=== PATIENT | male | born 1955 | race Caucasian/White ===

== ENCOUNTER 2018-12-07 22:25 | Inpatient (IN) ==
[2018-12-07] MEDS ORDERED: SODIUM CHLORIDE 0.9% 1000ML 1,000 ML IV ONE (23:48)
[2018-12-08 00:01] LABS: Basophils # (auto) 0.04 K/uL (0-0.2); Basophils % (auto) 0.5 %; Eosinophils # (auto) 0.28 K/uL (0-0.5); Eosinophils % (auto) 3.3 %; Hematocrit (blood only) 38.6 % (42-52); Hemoglobin 13.2 g/dL (14.0-18.0); Immature Granulocytes # (auto) 0.02 K/uL (0.00-0.02); Immature Granulocytes % (auto) 0.2 %; Lymphocytes # (auto) 2.01 K/uL (1.2-3.4); Lymphocytes % (auto) 23.6 %; Mean Corpuscular Hgb Conc 34.2 g/dL (32-36); Mean Corpuscular Volume 92.3 fL (80-100); Mean Platelet Volume 10.4 fL (7.4-10.4); Monocytes # (auto) 0.74 K/uL (0.11-0.59); Monocytes % (auto) 8.7 %; Neutrophils # (auto) 5.42 K/uL (1.4-6.5); Neutrophils % (auto) 63.7 %; Platelet Count 363 K/uL (130-400); RDW Coefficient of Variation 12.7 % (11.5-14.5); RDW Standard Deviation 43.1 fL (36.4-46.3); Red Blood Count 4.18 M/uL (4.7-6.1); White Blood Count 8.51 K/uL (4.8-10.8)
[2018-12-08 00:08] LABS: Partial Thromboplastin Time 27.1 Seconds (21.0-31.0); Prothrombin Time 10.6 Seconds (9.0-12.0)
[2018-12-08 00:10] LABS: Alanine Aminotransferase 18 U/L (12-78); Albumin Level 3.1 gm/dl (3.4-5.0); Aspartate Aminotransferase 16 U/L (15-37); BUN Creatinine Ratio 21.3 (10-20); Bilirubin Direct < 0.1 mg/dl (0-0.2); Blood Urea Nitrogen 18 mg/dl (7-18); C Reactive Protein 2.41 mg/dl (0-0.29); Calcium 9.4 mg/dl (8.5-10.1); Carbon Dioxide 28 mmol/L (21-32); Chloride 105 mmol/L (98-107); Creatinine Clr Calc Pharmacy 76.1 ml/min; Est GFR (African American) 108.5; Est GFR (Non-African American) 93.6; Glucose 101 mg/dl (70-99); Magnesium 2.5 mg/dl (1.8-2.4); Potassium 4.2 mmol/L (3.5-5.1); Sodium 138 mmol/L (136-145)
[2018-12-08] MEDS ORDERED: OPTIRAY 320 125ml IV PRN (00:12)
[2018-12-08 00:13] LABS: Alkaline Phosphatase 96 U/L (45-117); Bilirubin,Total 0.1 mg/dl (0.2-1); Total Protein 7.7 gm/dl (6.4-8.2); Troponin I < 0.015 ng/ml (0-0.045)
[2018-12-08] MEDS ORDERED: PIPERACILLIN/TAZOBACTAM 4.5 GM/120 ML BAG IV ONE (01:01)
[2018-12-08] MEDS ORDERED: VANCOMYCIN CONSULT ACTIVE PRN ×2 (01:01→03:56)
[2018-12-08] MEDS ORDERED: PIPERACILL/TAZOBAC CONSULT ACTIVE PRN ×2 (01:01→03:56)
[2018-12-08] MEDS ORDERED: VANCOMYCIN HCL 1,250 MG in SODIUM CHLORIDE 0.9% 500 ML IV ONE (01:01)
--- NOTE | 2018-12-08 03:17 | History & Physical Report ---
Date of Service December 08, 2018 Assessment & Plan (1) Elevated erythrocyte sedimentation rate: 63 yo M with history of mastocytosis s/p Bone marrow transplant, AML no currently being treated, Afib, presenting with recent history of chest pain within last 48 hrs in addition to reported recent diagnosis of pericarditis, new diagnosis of afib admitted with elevated inflammatory markers, bilateral opacities on CT chest -Admit to Telemetry - Elevated ESR etiology unclear. Pneumonia considered although patient arrived afebrile without leukocytosis, and a 100 saturation on room air. Given recent symptoms of chest pain, recent diagnosis of possible pericarditis, also considering myocarditis etiology. Additionally patient has known previous history of significant fungal pneumonia - previously treated with colchicine in [place] for presumed pericarditis, but stopped due to side effects. patient has NSAID anaphylactic allergy listed in chart as well - Echo ordered , Cardiology consulted, Infectious disease consulted - IV Vanco /Zosyn initiated, continue on admission (2) Opacity of lung on imaging study: Tx as above Pulm consulted F/u inhouse radiology report of CT (3) Pericarditis: diagnosed during recent travel to [facility] s/p colchicine treatment, stopped early due to GI side effects not currently complaining of active chest pain despite NSAID allergy listed on chart, he tolerated toradol in ED 2 days prior Consider if needed Trop neg on arrival, F/u CKmb no PE on CT (4) AML (acute myeloblastic leukemia): no currently undergoing treatment (5) A-fib: rate controlled (6) DVT prophylaxis: Heparin History of Present Illness Chief Complaint: Chest discomfort, abnormal labs Primary Care Provider: Jame Aguilar 63 yo M with history of mastocytosis s/p Bone marrow transplant, AML no currently being treated, Afib, presenting with recent history of chest pain within last 48 hrs in addition to reported recent diagnosis of pericarditis, new diagnosis of afib. Patient recently traveled to [facility] recently and returned home 11/23 . In [place] he developed chest pain and went to the local hospital on 11/10 , 11/11 , admitted 11/13. He was subsequently diagnosed with atrial fibrillation during one encounter and pericarditis on a subsequent encounter. He was placed on Beta-ileana( Metoprolol) 10-14 days, Colchicine that he took for 14 days and then stopped it himself due to diarrhea. Patient was seen in [facility] emergency dept 2 days ago chest pain with radiation to right shoulder, and sent home. He saw pcp Dr. Aguilar day before arrival, who told him that his ESR was elevated at 75. PCP had recommended admission for Echo , Chest CT. He continues to report some chest pain with inspiration. He denies palpitaiton, presyncope, syncope. He reports nausea, but denies ongoing diarrhea In the ED, he was found to be afebrile, 98-100% saturation, VSS, ESR >90, CRP 2.41, no leukocytosis. CTA chest per [facility] showed bilateral lung opacities, chronic scarring , bronchiectasis, Allergies Allergy/AdvReac Type Severity Reaction Status Date / Time cyclobenzaprine Allergy Severe ?MUSCLE Verified 12/07/18 23:02 RELAXANT-ANAPHYLAXIS methocarbamol Allergy Severe ?MUSCLE Verified 12/07/18 23:02 RELAXANT- ANAPHYLAXIS NSAIDS (Non-Steroidal Allergy Severe ANAPHYLAXIS Verified 12/07/18 23:02 Anti-Inflamma cefepime AdvReac Intermediate Rash Unverified 12/07/18 23:02 MUSCLE RELAXANTS Allergy Severe ANAPHYLAXIS Uncoded 12/07/18 23:02 Home Medications Home Medications Medication Instructions Recorded Confirmed Type albuterol sulfate [ProAir HFA] 1 - 2 puff INHALATION DAILY PRN 12/05/18 12/07/18 History epinephrine 0.3 mg IM UD 12/05/18 12/07/18 History ofloxacin 1 drp OPR Q6H 12/05/18 12/07/18 History Past Med/Surg History Medical History Chest pain (Acute) Mastocytosis AML (acute myeloblastic leukemia) A-fib Pericarditis Surgical History Bone marrow transplant status Family History Other No pertinent family history Social History Preferred Language: Tongan Communication Ability: Effective Beliefs That Will Affect Care: Worship Worship Beliefs: [employer] Current Living Situation: Spouse Other Information That Helps Us Care for You: No Feels Safe at Home: Yes Smoking Status: Never smoker Do You Dip or Chew Tobacco: No Hx Alcohol Use: Yes Hx Substance Use: No Review of Systems Review of Systems: All systems reviewed & are unremarkable except as noted in HPI & below Physical Exam Physical Exam: GENERAL APPEARANCE: alert and cooperative, and appears to be in no acute distress. HEAD: normocephalic. EYES: PERRL, EOMI. vision is grossly intact. EARS: hearing grossly intact. NOSE: No nasal discharge. NECK: Neck supple, non-tender without lymphadenopathy CARDIAC: Normal S1 and S2. No S3, S4 or murmurs. Rhythm is regular LUNGS: Clear to auscultation and percussion without rales, rhonchi, wheezing or diminished breath sounds. ABDOMEN: Positive bowel sounds. Soft, nondistended, nontender. No guarding or rebound. No masses. MUSKULOSKELETAL: Adequately aligned spine. Normal muscular development. LOWER EXTREMITY: no edema NEUROLOGICAL: CN II-XII intact grossly. Strength and sensation symmetric and intact throughout Results & Data Vital Signs (Past 12 Hours) Vital Signs Temp Pulse Pulse Resp BP BP Pulse Ox 12/08/18 02:02 72 18 103/66 98 12/08/18 01:00 62 18 108/66 100 12/07/18 23:22 58 L 18 114/66 97 12/07/18 22:45 36.9 C 65 20 115/58 L 98 Laboratory Results Laboratory Results WBC 8.51 K/uL (4.8-10.8) 12/07/18 23:17 RBC 4.18 M/uL (4.7-6.1) L 12/07/18 23:17 Hgb 13.2 g/dL (14.0-18.0) L 12/07/18 23:17 Hct 38.6 % (42-52) L 12/07/18 23:17 MCV 92.3 fL (80-100) 12/07/18 23:17 MCH 31.6 pg (25-34) 12/07/18 23:17 MCHC 34.2 g/dL (32-36) 12/07/18 23:17 RDW Std Deviation 43.1 fL (36.4-46.3) 12/07/18 23:17 RDW Coeff of Martin 12.7 % (11.5-14.5) 12/07/18 23:17 Plt Count 363 K/uL (130-400) 12/07/18 23:17 MPV 10.4 fL (7.4-10.4) 12/07/18 23:17 Immature Gran % (Auto) 0.2 % 12/07/18 23:17 Neut % (Auto) 63.7 % 12/07/18 23:17 Lymph % (Auto) 23.6 % 12/07/18 23:17 [place] % (Auto) 8.7 % 12/07/18 23:17 Eos % (Auto) 3.3 % 12/07/18 23:17 Baso % (Auto) 0.5 % 12/07/18 23:17 Immature Gran # (Auto) 0.02 K/uL (0.00-0.02) 12/07/18 23:17 Neut # (Auto) 5.42 K/uL (1.4-6.5) 12/07/18 23:17 Lymph # (Auto) 2.01 K/uL (1.2-3.4) 12/07/18 23:17 [place] # (Auto) 0.74 K/uL (0.11-0.59) H 12/07/18 23:17 Eos # (Auto) 0.28 K/uL (0-0.5) 12/07/18 23:17 Baso # (Auto) 0.04 K/uL (0-0.2) 12/07/18 23:17 ESR > 90 mm/hr (0-14) H 12/07/18 23:17 PT 10.6 Seconds (9.0-12.0) 12/07/18 23:17 INR 1.0 (0.9-1.1) 12/07/18 23:17 APTT 27.1 Seconds (21.0-31.0) 12/07/18 23:17 PTT Ratio 1.0 12/07/18 23:17 Sodium 138 mmol/L (136-145) 12/07/18 23:17 Potassium 4.2 mmol/L (3.5-5.1) 12/07/18 23:17 Chloride 105 mmol/L (98-107) 12/07/18 23:17 Carbon Dioxide 28 mmol/L (21-32) 12/07/18 23:17 Anion Gap 6.0 (3-11) 12/07/18 23:17 BUN 18 mg/dl (7-18) 12/07/18 23:17 Creatinine 0.83 mg/dl (0.6-1.4) 12/07/18 23:17 Est Cr Clr Drug Dosing 76.1 ml/min 12/07/18 23:17 Est GFR ( Amer) 108.5 12/07/18 23:17 Est GFR (Non-Af Amer) 93.6 12/07/18 23:17 BUN/Creatinine Ratio 21.3 (10-20) H 12/07/18 23:17 Glucose 101 mg/dl (70-99) H 12/07/18 23:17 Calcium 9.4 mg/dl (8.5-10.1) 12/07/18 23:17 Magnesium 2.5 mg/dl (1.8-2.4) H 12/07/18 23:17 Total Bilirubin 0.1 mg/dl (0.2-1) L 12/07/18 23:17 Direct Bilirubin < 0.1 mg/dl (0-0.2) 12/07/18 23:17 AST 16 U/L (15-37) 12/07/18 23:17 ALT 18 U/L (12-78) 12/07/18 23:17 Alkaline Phosphatase 96 U/L (45-117) 12/07/18 23:17 CK/CKMB % Calc Not Reportable 12/07/18 23:17 Troponin I < 0.015 ng/ml (0-0.045) 12/07/18 23:17 C-Reactive Protein 2.41 mg/dl (0-0.29) H 12/07/18 23:17 Total Protein 7.7 gm/dl (6.4-8.2) 12/07/18 23:17 Albumin 3.1 gm/dl (3.4-5.0) L 12/07/18 23:17 Medications Administered Ioversol (Optiray 320 125ml) 125 ml IV ONCE PRN PRN Reason: Interaction Checking Stop: 12/12/18 00:11 Last Admin: 12/08/18 00:12 Dose: 85 ml Documented by: [id number] Discontinued Medications Sodium Chloride (Nss 1000ml) 1,000 mls @ 999 mls/hr IV .Q1H1M ONE Stop: 12/08/18 00:48 Last Infusion: 12/08/18 00:54 Dose: 0 mls/hr Documented by: [id number] Admin: 12/07/18 23:53 Dose: 999 mls/hr Documented by: [id number] Piperacillin Sod/Tazobactam Sod (Zosyn) 4.5 gm in 120 mls @ 240 mls/hr IV NOW ONE Stop: 12/08/18 01:30 Last Infusion: 12/08/18 01:59 Dose: 0 mls/hr Documented by: [id number] Admin: 12/08/18 01:25 Dose: 240 mls/hr Documented by: [id number] Vancomycin HCl 1,250 mg/ (Sodium Chloride) 525 mls @ 200 mls/hr IV NOW ONE; Protocol Stop: 12/08/18 03:38 Last Admin: 12/08/18 02:00 Dose: 200 mls/hr Documented by: [id number] Code Status & VTE Plan Code Status FULL VTE Prophylaxis Plan VTE Prophylaxis will be ordered: Yes Supervising Physician Co-Signing Physician Notes Attending addendum: I have physically seen this patient, have supervised the medical residents activities, and agree with the H&P unless as otherwise noted. Assessment and Plan: Cough with elevated sedimentation rate greater than 90/ 12 pound unintentional weight loss in an already thin male/post BMT for AML, without need for immunosuppression-- Recent travel to [place], where diagnosed with pericarditis and atrial fibrillation. He was placed on large doses of colchicine, which after 2 weeks gave him intractable diarrhea and he stopped. He also reports briefly being on a medication to control heart rate. Differential includes: Pericarditis/myocarditis/endocarditis/pneumonia on top of old scarring from previous fungal infections/ pulmonary fibrosis, among others. Order complete echocardiogram. Admit to monitored bed. He was empirically given vancomycin IV and Zosyn IV by the ED. We will hold on further antibiotics until seen by consultants. Next dosing would be around 8:00 AM Consult infectious disease, pulmonology and cardiology. Remainder of orders and notations as noted.
[2018-12-08 03:55] LABS: Creatine Kinase MB < 1.0 ng/ml (0.5-3.6)
[2018-12-08] MEDS ORDERED: ACETAMINOPHEN 325 MG TAB PO PRN (03:56)
[2018-12-08] MEDS ORDERED: ALBUTEROL HFA 8 GM INHALER INH PRN (03:56)
[2018-12-08] MEDS ORDERED: VANCOMYCIN HCL 1,000 MG in SODIUM CHLORIDE 0.9% 250 ML IV SCH (03:56)
[2018-12-08] MEDS ORDERED: ONDANSETRON INJ 2 MG/ML 2 ML VIAL IV PRN (03:56)
[2018-12-08] MEDS: PIPERACILLIN/TAZOBACTAM 3.375 GM in DEXTROSE 5% 100 ML IV SCH ×3 (04:58→21:16)
--- NOTE | 2018-12-08 05:21 | Emergency Department Note ---
Entered by Cornelius Caruso acting as a scribe for Cruzito Webb MD ED Provider Note Name: Jesse Madsen Age: 63 Arrives Via: Triage Informant: Self CC: Chest pain HPI: 63 y/o male arrives for evaluation of persistent chest pain beginning four weeks ago. The patient states he was in [place] four weeks ago and was diagnosed with a-fib and pericarditis after having persistent right sided chest pain. He notes he was admitted to the hospital and had nan echocardiogram that was normal. He reports he was placed on colchicine. The patient notes he had to stop it after about 10 days because he had severe diarrhea, no appetite, and lost 12 pounds in two weeks. He states he was evaluated in the ED two days ago because his chest pain had spread to his left chest. The patient reports he had blood cultures and lab work that showed an elevated CRP. He notes he currently feels weak and has had intermittent fevers. The patient states he was supposed to have a CT completed per his PCP, but he has not had it completed yet. He reports a history of AML and a bone marrow transplant. The patient notes he is no longer on anti-rejection medication. He denies swelling in his legs, calf pain, rashes, blood in his stool, and black stool. ROS: See above HPI for pertinent positives & negatives. A total of 10 systems reviewed and were otherwise negative. Past Medical History: Pericarditis, Mastocytosis, AML, a-fib Past Surgical History: Bone marrow transplant Family History: None Social History: . Home Medications: Proair HFA Allergies Flexeril, methocarbamol, nsaids, cefepime Physical: Vitals: Pulse 62, Resp 18, BP 108/66, O2Sat 100 Exam: GENERAL: Patient is uncomfortable and dehydrated appearing and in mild distress. EYES: No scleral icterus, unremarkable pupils. ENT: Mucous membranes dry, no nasal congestion. NECK: No masses appreciated, no meningismus, trachea is midline. RESPIRATORY: No dyspnea. Clear to auscultation and equal bilaterally. No wheeze, no rhonchi. CARDIOVASCULAR: Regular rate and rhythm. No murmurs, rubs, gallops appreciated. GASTROINTESTINAL: Abdomen soft, non-tender, no peritonitis. Bowel sounds positive. No masses appreciated. BACK: No midline tenderness, no CVA tenderness EXTREMITIES: Normal motion all extremities, no cyanosis, no edema. NEUROLOGIC: Alert and oriented, no acute motor or sensory deficits, no focal weakness, cranial nerves grossly intact. SKIN: No rash, no jaundice, no diaphoresis. ED Course: Prior Medical Record, Triage/Nursing Notes, Medications, Allergies reviewed by Me Vital Signs: reviewed and remarkable for WNL Labs: Reviewed and remarkable for elevated CRP/ESR Interventions: Saline Lock, NSS bolus, Zosyn 4.5g IV, Flagyl 500mg IV Imaging: [facility] Radiologist interpretation reviewed by me: "CTA CHEST: No evidence for pulmonary embolism. The distal thoracic aorta is not well opacified. Although this limits evaluation , no evidence for dissection is seen. There are chronic lung findings with areas of scarring and bronchiectasis. Example right middle lobe and lingula. Tree-in-bud/micronodular opacities, example right middle lobe which may be infectious. More confluent bilateral lung opacities, example bilateral lower lobes. Suspect pneumonia. Radiologist: Zay Andrade M.D." EKG: Per My Interpretation: Indication: Right Chest Pain: Sinus Harpreet 57bpm qtc 397 no ectopy no ischemia. Consults: Hospitalist Reassessments/Times: 2336: The patient was evaluated in room A11B. A complete history and physical exam was performed. 0024: The patient had a round of doxy without improvement of his symptoms. 0100: The patient is agreeable to IV abx and inpaitnet treatments. He also finished a 10 day course of doxy two days ago. 0101: Paged Dr. Trinidad, [facility] Hospitalist. 0157: I discussed the patient's case with Dr. Trinidad, [facility] Hospitalist. He will evaluate the patient for further managment and care. Blood pressure: Normal. No Referral necessary Disposition: Hospitalization Differentials: Cardiac Ischemia (STEMI, NSTEMI, Unstable Angina, etc), Aortic Dissection, Arrhythmia, Pulmonary Embolism, Pneumonia, Pneumothorax, MSK, Infectious, Pericarditis/Myocarditis, Esophageal Rupture, Gastrointestinal, amongst other pathologies entertained. Medical Decision Making: Pleasant 63 yr old male with worsening right chest pain, weight loss and fatigue. Already treated for PNA finishing a few days ago and symptoms worsening since then. Also with recent Pericarditis for which he was on colchicine. He looks well and is stable. Went ahead with CT given persistent symptoms, recent travel and unremarkable recent CXR. CT with multifocal pneumonia. ESR/CRP quite elevated. While vitals look good and WBC OK, he clearly has failed outpatient therapy and I think he will likely need further work-up including possible echo. He had blood cultures done yesterday but given possibility of endocarditis we will get another round cultures prior to abx. He is not septic and LA is not necessary. He is not in afib and I do not feel that he requires emergent anticoagulation. This seems unlikely ACS given persistent symptoms with normal Trop. Impression: Multifocal pneumonia Right-sided chest pain Curzito Webb MD The scribe's documentation has been prepared under my direction and personally reviewed by me in its entirety. I confirm that the note above accurately reflects all work, treatment, procedures, and medical decision making performed by me. Impression & Plan Multifocal pneumonia, Right-sided chest pain Past Med/Surg History Medical History Mastocytosis AML (acute myeloblastic leukemia) A-fib Pericarditis Surgical History Bone marrow transplant status Family History Other No pertinent family history Social History Preferred Language: Paraguayan Beliefs That Will Affect Care: Religion Religion Beliefs: Christianity Current Living Situation: Spouse Other Information That Helps Us Care for You: No Feels Safe at Home: Yes Smoking Status: Never smoker Do You Dip or Chew Tobacco: No Hx Alcohol Use: Yes Hx Substance Use: No Results & Data Vital Signs Vital Signs - 24 hr 12/07/18 22:45 12/07/18 23:22 12/08/18 01:00 Temperature 36.9 C Temperature Source Oral Sepsis Recent Fever Within 48 Hours No Sepsis New/Unexplained Change in Mental Status No Sepsis Action Taken by Nursing No Action Required Pulse Rate 65 Pulse Rate [Finger] 58 L 62 Pulse Rhythm Regular Pulse Rhythm [Finger] Pulse Strength Normal Pulse Strength [Finger] Respiratory Rate 20 18 18 Respiratory Effort / Characteristics Non-Labored Spontaneous Respiratory Depth Normal Respiratory Pattern Regular Blood Pressure 115/58 L Blood Pressure [Left Arm] 114/66 108/66 Blood Pressure Mean 77 Blood Pressure Mean [Left Arm] 82 80 Blood Pressure Position Sitting Blood Pressure Position [Left Arm] Pulse Oximetry 98 97 100 Oxygen Delivery Method Room Air Room Air Room Air 12/08/18 02:02 12/08/18 03:56 12/08/18 04:39 Temperature 36.7 C Temperature Source Oral Sepsis Recent Fever Within 48 Hours Sepsis New/Unexplained Change in Mental Status Sepsis Action Taken by Nursing Pulse Rate Pulse Rate [Finger] 72 66 Pulse Rhythm Pulse Rhythm [Finger] Regular Pulse Strength Pulse Strength [Finger] Normal Respiratory Rate 18 18 Respiratory Effort / Characteristics Non-Labored Non-Labored Respiratory Depth Normal Normal Respiratory Pattern Regular Regular Blood Pressure Blood Pressure [Left Arm] 103/66 117/77 Blood Pressure Mean Blood Pressure Mean [Left Arm] 78 90 Blood Pressure Position Blood Pressure Position [Left Arm] Lying Pulse Oximetry 98 96 Oxygen Delivery Method Room Air Room Air Room Air Home Medications Current Medication List: was personally reviewed by me Laboratory Data Attestation: I reviewed the patient's lab results. Result diagrams: 12/07/18 23:17 12/07/18 23:17 Lab Results 12/07/18 12/07/18 12/07/18 Range/Units 23:17 23:17 23:17 WBC 8.51 (4.8-10.8) K/uL RBC 4.18 L (4.7-6.1) M/uL Hgb 13.2 L (14.0-18.0) g/dL Hct 38.6 L (42-52) % MCV 92.3 (80-100) fL MCH 31.6 (25-34) pg MCHC 34.2 (32-36) g/dL RDW Std Deviation 43.1 (36.4-46.3) fL RDW Coeff of Martin 12.7 (11.5-14.5) % Plt Count 363 (130-400) K/uL MPV 10.4 (7.4-10.4) fL Immature Gran % (Auto) 0.2 % Neut % (Auto) 63.7 % Lymph % (Auto) 23.6 % [place] % (Auto) 8.7 % Eos % (Auto) 3.3 % Baso % (Auto) 0.5 % Immature Gran # (Auto) 0.02 (0.00-0.02) K/uL Neut # (Auto) 5.42 (1.4-6.5) K/uL Lymph # (Auto) 2.01 (1.2-3.4) K/uL [place] # (Auto) 0.74 H (0.11-0.59) K/uL Eos # (Auto) 0.28 (0-0.5) K/uL Baso # (Auto) 0.04 (0-0.2) K/uL ESR > 90 H (0-14) mm/hr PT 10.6 (9.0-12.0) Seconds INR 1.0 (0.9-1.1) APTT 27.1 (21.0-31.0) Seconds PTT Ratio 1.0 Sodium (136-145) mmol/L Potassium (3.5-5.1) mmol/L Chloride (98-107) mmol/L Carbon Dioxide (21-32) mmol/L Anion Gap (3-11) BUN (7-18) mg/dl Creatinine (0.6-1.4) mg/dl Est Cr Clr Drug Dosing ml/min Est GFR ( Amer) Est GFR (Non-Af Amer) BUN/Creatinine Ratio (10-20) Glucose (70-99) mg/dl Calcium (8.5-10.1) mg/dl Magnesium (1.8-2.4) mg/dl Total Bilirubin (0.2-1) mg/dl Direct Bilirubin (0-0.2) mg/dl AST (15-37) U/L ALT (12-78) U/L Alkaline Phosphatase (45-117) U/L CK-MB (CK-2) (0.5-3.6) ng/ml CK/CKMB % Calc Troponin I (0-0.045) ng/ml C-Reactive Protein (0-0.29) mg/dl Total Protein (6.4-8.2) gm/dl Albumin (3.4-5.0) gm/dl 12/07/18 Range/Units 23:17 WBC (4.8-10.8) K/uL RBC (4.7-6.1) M/uL Hgb (14.0-18.0) g/dL Hct (42-52) % MCV (80-100) fL MCH (25-34) pg MCHC (32-36) g/dL RDW Std Deviation (36.4-46.3) fL RDW Coeff of Martin (11.5-14.5) % Plt Count (130-400) K/uL MPV (7.4-10.4) fL Immature Gran % (Auto) % Neut % (Auto) % Lymph % (Auto) % [place] % (Auto) % Eos % (Auto) % Baso % (Auto) % Immature Gran # (Auto) (0.00-0.02) K/uL Neut # (Auto) (1.4-6.5) K/uL Lymph # (Auto) (1.2-3.4) K/uL [place] # (Auto) (0.11-0.59) K/uL Eos # (Auto) (0-0.5) K/uL Baso # (Auto) (0-0.2) K/uL ESR (0-14) mm/hr PT (9.0-12.0) Seconds INR (0.9-1.1) APTT (21.0-31.0) Seconds PTT Ratio Sodium 138 (136-145) mmol/L Potassium 4.2 (3.5-5.1) mmol/L Chloride 105 (98-107) mmol/L Carbon Dioxide 28 (21-32) mmol/L Anion Gap 6.0 (3-11) BUN 18 (7-18) mg/dl Creatinine 0.83 (0.6-1.4) mg/dl Est Cr Clr Drug Dosing 76.1 ml/min Est GFR ( Amer) 108.5 Est GFR (Non-Af Amer) 93.6 BUN/Creatinine Ratio 21.3 H (10-20) Glucose 101 H (70-99) mg/dl Calcium 9.4 (8.5-10.1) mg/dl Magnesium 2.5 H (1.8-2.4) mg/dl Total Bilirubin 0.1 L (0.2-1) mg/dl Direct Bilirubin < 0.1 (0-0.2) mg/dl AST 16 (15-37) U/L ALT 18 (12-78) U/L Alkaline Phosphatase 96 (45-117) U/L CK-MB (CK-2) < 1.0 (0.5-3.6) ng/ml CK/CKMB % Calc Not Reportable Troponin I < 0.015 (0-0.045) ng/ml C-Reactive Protein 2.41 H (0-0.29) mg/dl Total Protein 7.7 (6.4-8.2) gm/dl Albumin 3.1 L (3.4-5.0) gm/dl Administered Medications Piperacillin Sod/Tazobactam (Sod 3.375 gm/ Dextrose) 115 mls @ 28.75 mls/hr IV Q8H [facility]; Protocol Stop: 12/15/18 05:59 Last Admin: 12/08/18 04:58 Dose: 28.8 mls/hr Documented by: [id number] Discontinued Medications Sodium Chloride (Nss 1000ml) 1,000 mls @ 999 mls/hr IV .Q1H1M ONE Stop: 12/08/18 00:48 Last Infusion: 12/08/18 00:54 Dose: 0 mls/hr Documented by: [id number] Admin: 12/07/18 23:53 Dose: 999 mls/hr Documented by: [id number] Piperacillin Sod/Tazobactam Sod (Zosyn) 4.5 gm in 120 mls @ 240 mls/hr IV NOW ONE Stop: 12/08/18 01:30 Last Infusion: 12/08/18 01:59 Dose: 0 mls/hr Documented by: [id number] Admin: 12/08/18 01:25 Dose: 240 mls/hr Documented by: [id number] Vancomycin HCl 1,250 mg/ (Sodium Chloride) 525 mls @ 200 mls/hr IV NOW ONE; Protocol Stop: 12/08/18 03:38 Last Infusion: 12/08/18 05:02 Dose: 0 mls/hr Documented by: [id number] Admin: 12/08/18 02:00 Dose: 200 mls/hr Documented by: [id number] Ioversol (Optiray 320 125ml) 125 ml IV ONCE PRN PRN Reason: Interaction Checking Stop: 12/12/18 00:11 Last Admin: 12/08/18 00:12 Dose: 85 ml Documented by: [id number] Ofloxacin (Ocuflox 0.3%) 1 drops OPR Q6H [facility] Stop: 12/18/18 05:59 Last Admin: 12/08/18 05:04 Dose: Not Given Documented by: [id number] Blood Pressure Blood Pressure Findings: Normal blood pressure Blood Pressure Disposition: did not require urgent referral Discharge Plan Visit Data *Final* Discharge Date/Time: 12/08/18 03:34 Chief Complaint: Chest Pain Stated Complaint: CHEST PAIN- REFERRED ED Provider: Cruzito Webb Discharge Problem: Multifocal pneumonia, Right-sided chest pain Patient Disposition: Being Evaluated by Hospitalist Discharge Instructions Interventions: ED Discharge Assessment Last Done: 12/08/18 03:34 The scribe's documentation has been prepared under my direction and personally reviewed by me in its entirety. I confirm that the note above accurately reflects all work, treatment, procedures, and medical decision making performed by me.
[2018-12-08] MEDS ORDERED: OFLOXACIN 0.3% OP SOLN 5 ML BTL OPR SCH (06:00)
--- NOTE | 2018-12-08 07:19 | CT Scan Report ---
CHEST CTA for PULMONARY ARTERIES CT DOSE: 235.54 mGy.cm HISTORY: Right-sided chest pain. PE TECHNIQUE: Multiaxial CT images of the chest were performed following the intravenous administration of contrast to evaluate the pulmonary arteries. Maximal intensity projection images were also obtaine d. A dose lowering technique was utilized adhering to the principles of ALARA. COMPARISON STUDY: Chest 12/05/2018. FINDINGS: Normal caliber thoracic aorta with no evidence for dissection. No pleural or pericardial ef fusions. Questionable linear filling defect within a left upper lobe pulmonary and image 174 favors a rtifact. No evidence for acute pulmonary embolus within the visualized pulmonary arteries. The visual ized liver, spleen, and adrenal glands are unremarkable. No mediastinal or hilar lymphadenopathy. Nor mal esophagus. No suspicious lytic or blastic osseous lesions. No pneumothorax. The central airways a re patent. Mild bronchiectasis within the lingula. A few linear scarlike densities within the left up per lobe. Small patchy groundglass densities within the bases of the bilateral lower lobes and focal irregular consolidation within the medial aspect of the right middle lobe. IMPRESSION: 1. No evidence for acute pulmonary embolus. 2. Small patchy groundglass densities within the bilateral lower lobes and focal consolidation within the medial aspect of right middle lobe. This favors a pneumonia. Follow-up chest CT in 3 months is r ecommended to ensure resolution. 3. Additional findings as described above. Electronically signed by: Jefferson Iqbal M.D. 12/08/2018 7:17 AM
[2018-12-08 07:58] LABS: Albumin Globulin Ratio 0.7 (0.9-2); Albumin Level 2.7 gm/dl (3.4-5.0); BUN Creatinine Ratio 14.4 (10-20); Bilirubin,Total 0.3 mg/dl (0.2-1); Calcium 8.9 mg/dl (8.5-10.1); Creatinine Clr Calc Pharmacy 81.7 ml/min; Est GFR (African American) 111.3; Est GFR (Non-African American) 96.1; Globulin 4.1 gm/dl (2.5-4.0); Potassium 4.1 mmol/L (3.5-5.1); Total Protein 6.8 gm/dl (6.4-8.2)
[2018-12-08] MEDS: HEPARIN SOD 5,000 UNIT/0.5 ML VIAL SQ SCH ×2 (09:05→21:09)
--- NOTE | 2018-12-08 10:36 | Consultation Report ---
DATE OF CONSULTATION: 12/08/2018 REQUESTING: Arthur Norris MD HAND LEATHER TRIMMER: Bill Munoz DO, [facility]. REASON FOR CONSULTATION: Pericarditis, elevated sed rate, possible pneumonia. Dear Dr. Norris: Thank you for requesting a cardiology consultation on Jesse with regards to his pericarditis, elevated sed rate and possible pneumonia. I was scheduled to see him in the office in the next week or so. He was in [place] about a month ago visiting his son and grandchild. He became sick there with high fevers and URI-like symptoms. He was evaluated in the Emergency Room there and ultimately ended up being admitted. He was diagnosed with pericarditis. He also had an episode of atrial fibrillation. His discharge medications suggest he was sent home on bisoprolol 1.25 mg daily and colchicine 0.5 mg b.i.d. He notes he tried to tolerate the colchicine at the b.i.d. dosing, but had significant GI distress and loose stools and he was actually losing weight and lost about 12 pounds. After returning to the [facility] and subsequently stopping his colchicine, his chest pain reoccurred with right-sided chest discomfort that radiated to his right scapula. He has been seen in the ER twice and returned to the ER last evening due to worsening discomfort that was now in the left side. He denies any further fevers, chills or sweats. He denies a cough. He denies any night sweats or shaking chills. He denies any palpitations or fluttering or feeling his heart racing. His appetite is stabilized. He denies any lower extremity edema, fluttering, skips, PND, orthopnea. He denies a productive cough. He denies any myalgias, arthralgias, or recent rash. The rest of review of systems is otherwise negative. PAST MEDICAL HISTORY: 1. 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 2. Acute myeloid leukemia, status post chemotherapy and bone marrow transplantation in 2013 at [facility]. 3. Single episode of atrial fibrillation at the time of pericarditis. 4. Recent episode of pericarditis. 5. Theoretical risk of taking NSAIDs associated with his history of mastocytosis. 6. History of fungal pneumonia at [facility] at the time of his chemotherapy for his AML. 7. Significantly elevated sed rate at 90. FAMILY HISTORY: Noncontributory. SOCIAL HISTORY: He is retired. 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 He is . He denies any tobacco and rarely drinks alcohol. MEDICATIONS: Reviewed in electronic medical record. ALLERGIES: CYCLOBENZAPRINE, METHOCARBAMOL, THEORETICAL INTOLERANCE TO NSAIDS, ALTHOUGH HE RECEIVED TORADOL IN THE EMERGENCY ROOM 2 NIGHTS AGO, CEFEPIME AND MUSCLE RELAXANTS. PHYSICAL EXAMINATION: GENERAL: He is awake, alert, oriented x3. He does not look in any acute distress. His chest pain is improving. VITAL SIGNS: His heart rate is 58, blood pressure 121/72, respirations 18, sat 98%. HEENT: 2+ carotid upstrokes, no evidence of carotid bruits. Jugular venous pressure appeared normal. Sclerae is anicteric. Hearing is normal. LUNGS: Clear to auscultation bilaterally. No rales, rhonchi or wheezing. HEART: Regular rate and rhythm. No appreciable murmurs, rubs or gallops. ABDOMEN: Soft, nontender, nondistended. Positive bowel sounds. EXTREMITIES: No clubbing, cyanosis or edema. PSYCHIATRIC: His affect appeared appropriate. EKG: Sinus bradycardia, IL depression with subtle diffuse ST elevation consistent with pericarditis. Echocardiogram: Normal biventricular size and function. No evidence of pericardial effusion, mild aortic insufficiency with a trileaflet aortic valve. CTA of the chest: No evidence of acute pulmonary embolism, patchy ground-glass densities in the bilateral lower lobes with focal consolidation in the right middle lobe, considered pneumonia. LABORATORY STUDIES: His troponin is negative. His sed rate was greater than 90. His white count is normal at 8.51, platelet count of 363. Sodium 141, potassium 4.1, BUN 11, creatinine 0.78. IMPRESSION: 1. Recurrent pericarditis after a viral illness. 2. Normal echocardiogram with normal biventricular size and function. No evidence of pericardial effusion. 3. History of fungal pneumonia, question the cause of his current abnormalities on the CT of his chest. 4. History of bone marrow transplantation for AML in 2013. 5. 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 6. Theoretical risk of NSAIDs causing anaphylaxis with his history of mastocytosis. 7. ESR of 90 --? etiology As I discussed with him, they are really only 3 treatment options for his pericarditis. At this point, I would avoid steroids as it is incredibly difficult to get patients off steroids once they are on them for pericarditis. In addition, if he does have an infection, we should avoid immunosuppression. His other options are anti-inflammatories. He notes this was a theoretical risk that he was ALLERGIC TO NSAIDs with his history of mastocytosis and he carries an EpiPen, but he has never actually had anaphylaxis. He did receive Toradol in the Emergency Room 2 nights ago and did not have any consequences of this. The other option is to consider colchicine. He was on a higher dose at 0.5 mg twice a day when he left [facility]. Hopefully, by reducing the dose, we can treat his pericarditis and avoid the GI symptoms as this seems to be the safest option currently. If he fails colchicine, then I would consider anti-inflammatories at the lowest dose possible to control his symptoms. I will add Zantac 150 mg twice a day for GI protection. Consultations are currently pending with ID and pulmonary medicine. He notes he had a previous CT of his chest at [facility]. This will be important to compare to his current CT to see how much of the abnormalities discussed or just related to chronic scarring given his previous fungal pneumonia. All this was discussed with him in detail. Thank you for allowing us to participate in his care. SEJAL
--- NOTE | 2018-12-08 11:02 | Infectious Disease Consult ---
Date of Consultation December 08, 2018 Assessment & Plan (1) Pericarditis: 63-year-old male with prior history of mastocytosis and AML status post bone marrow transplant, recently in good health, now with evidence of pericarditis and bilateral pneumonitis with symptoms persisting for more than 1 month. Long differential diagnosis including viral infections including coxsackie, echo, CMV/EBV, bacterial infections such as mycoplasma infection, Legionella, tuberculosis, Q fever. However, would have expected at least some clinical response to doxycycline if above bacterial/rickettsial infections were present. Also concerned about possibility of autoimmune/rheumatologic disease given markedly elevated sed rate. Have ordered additional serologies, antibody studies, and QuantiFERON for TB. Will discuss further work-up and management with all involved. Will follow. (2) Multifocal pneumonia: History of Present Illness Reason for Consultation: Elevated ESR, unclear etiology Attending Physician: Som Mancini History of Present Illness 63-year-old male with history of mastocytosis, AML status post bone marrow transplant, well over the last several years, who was in usual state of health until soon after arriving in [place] on vacation he became ill with upper respiratory tract infection symptoms and irregular heartbeat with chest pain. He was found to have atrial fibrillation, which spontaneously converted, and was also diagnosed as having pericarditis. He was treated with colchicine which he was intolerant of. He continues to have low-grade fevers, associated with dry cough and mild shortness of breath along with aching chest pain. He was now admitted for further management. Is found to have markedly elevated sedimentation rate. CT scan of the chest suggest bilateral pneumonitis. Patient reportedly received a course of doxycycline prior to this admission which did not impact his symptoms significantly. No other significant travel or ill contacts. No obvious recent tick bites. Allergies Allergy/AdvReac Type Severity Reaction Status Date / Time cyclobenzaprine Allergy Severe ?MUSCLE Verified 12/07/18 23:02 RELAXANT-ANAPHYLAXIS methocarbamol Allergy Severe ?MUSCLE Verified 12/07/18 23:02 RELAXANT- ANAPHYLAXIS NSAIDS (Non-Steroidal Allergy Severe ANAPHYLAXIS Verified 12/07/18 23:02 Anti-Inflamma cefepime AdvReac Intermediate Rash Unverified 12/07/18 23:02 MUSCLE RELAXANTS Allergy Severe ANAPHYLAXIS Uncoded 12/07/18 23:02 Home Medications Home Medications Medication Instructions Recorded Confirmed Type albuterol sulfate [ProAir HFA] 1 - 2 puff INHALATION DAILY PRN 12/05/18 12/07/18 History epinephrine 0.3 mg IM UD 12/05/18 12/07/18 History ofloxacin 1 drp OPR Q6H 12/05/18 12/07/18 History Patient History Medical History Chest pain (Acute) Mastocytosis AML (acute myeloblastic leukemia) A-fib Pericarditis Surgical History Bone marrow transplant status Family History Other No pertinent family history Social History Preferred Language: Georgian Communication Ability: Effective Beliefs That Will Affect Care: Anabaptist Anabaptist Beliefs: Gnosticist Current Living Situation: Spouse Other Information That Helps Us Care for You: No Feels Safe at Home: Yes Smoking Status: Never smoker Do You Dip or Chew Tobacco: No Hx Alcohol Use: Yes Hx Substance Use: No Review of Systems Review of Systems: All systems reviewed & are unremarkable except as noted in HPI & below Physical Exam Constitutional: WD/WN, vitals as above comfortable; no acute distress Eyes: PERRL, conjunctivae normal, anicteric sclerae ENMT: external ear and nose normal, oropharynx normal Neck: trachea midline, no thyromegaly neck nontender Respiratory: normal respiratory effort, lungs clear to auscultation normal percussion; does not use accessory muscles Cardiovascular: Rate/Rhythm: regular rate and regular rhythm Heart Sounds: normal S1 and normal S2; no gallop, no murmur and no cardiac rub Vessels: normal peripheral pulses; no JVD Gastrointestinal (Abdomen): normal bowel sounds, soft, nontender, no hepatosplenomegaly Musculoskeletal: no cyanosis or clubbing, extremities motor strength 5/5 Spine: thoracic spine normal to inspection and lumbar spine normal to inspection; no cervical spinal tenderness Skin: no rashes, warm and dry normal turgor; no lesions Neurologic: patellar DTR's 2+ bilat, sensation intact no focal motor deficits Psychiatric: A+Ox3, euthymic affect Orientation: cooperative Lymphatic: no cervical or axillary lymphadenopathy no inguinal lymphadenopathy Results & Data Vital Signs (Past 12 Hours) Vital Signs Temp Pulse Pulse Resp BP Pulse Ox 12/08/18 07:40 36.8 C 58 L 18 121/72 98 12/08/18 07:00 81 12/08/18 03:56 36.7 C 66 18 117/77 96 12/08/18 02:02 72 18 103/66 98 12/08/18 01:00 62 18 108/66 100 12/07/18 23:22 58 L 18 114/66 97 Laboratory Results Short CBC 12/07/18 Range/Units 23:17 WBC 8.51 (4.8-10.8) K/uL Hgb 13.2 L (14.0-18.0) g/dL Hct 38.6 L (42-52) % Plt Count 363 (130-400) K/uL BMP 12/07/18 12/08/18 23:17 06:51 Sodium 138 141 Potassium 4.2 4.1 Chloride 105 110 H Carbon Dioxide 28 26 BUN 18 11 Creatinine 0.83 0.78 Glucose 101 H 94 Calcium 9.4 8.9 Cardiac Enzymes 12/07/18 Range/Units 23:17 CK-MB (CK-2) < 1.0 (0.5-3.6) ng/ml Troponin I < 0.015 (0-0.045) ng/ml Liver Function 12/07/18 12/08/18 Range/Units 23:17 06:51 Total Bilirubin 0.1 L 0.3 (0.2-1) mg/dl Direct Bilirubin < 0.1 (0-0.2) mg/dl AST 16 11 L (15-37) U/L ALT 18 16 (12-78) U/L Alkaline Phosphatase 96 88 (45-117) U/L Albumin 3.1 L 2.7 L (3.4-5.0) gm/dl Diagnostic Findings CHEST CTA for PULMONARY ARTERIES CT DOSE: 235.54 mGy.cm HISTORY: Right-sided chest pain. PE TECHNIQUE: Multiaxial CT images of the chest were performed following the intravenous administration of contrast to evaluate the pulmonary arteries. Maximal intensity projection images were also obtained. A dose lowering technique was utilized adhering to the principles of ALARA. COMPARISON STUDY: Chest 12/05/2018. FINDINGS: Normal caliber thoracic aorta with no evidence for dissection. No pleural or pericardial effusions. Questionable linear filling defect within a left upper lobe pulmonary and image 174 favors artifact. No evidence for acute pulmonary embolus within the visualized pulmonary arteries. The visualized liver, spleen, and adrenal glands are unremarkable. No mediastinal or hilar lymphadenopathy. Normal esophagus. No suspicious lytic or blastic osseous lesions. No pneumothorax. The central airways are patent. Mild bronchiectasis within the lingula. A few linear scarlike densities within the left upper lobe. Small patchy groundglass densities within the bases of the bilateral lower lobes and focal irregular consolidation within the medial aspect of the right middle lobe. IMPRESSION: 1. No evidence for acute pulmonary embolus. 2. Small patchy groundglass densities within the bilateral lower lobes and focal consolidation within the medial aspect of right middle lobe. This favors a pneumonia. Follow-up chest CT in 3 months is recommended to ensure resolution. 3. Additional findings as described above. Electronically signed by: Jefferson Iqbal M.D. 12/08/2018 7:17 AM Dictated: 12/08/18 0708 (1) Pericarditis Chronicity: unspecified Pericarditis type: unspecified type Qualified Code(s): I31.9 - Disease of pericardium, unspecified
[2018-12-08] MEDS: COLCHICINE 0.6 MG TAB PO SCH (11:08)
--- NOTE | 2018-12-08 14:01 | Pulmonary Consultation ---
Date of Consultation December 08, 2018 Assessment & Plan (1) Opacity of lung on imaging study: bilateral infiltrates - doubt this is acute bacterial process. could be resolving pneumonia vs viral infection. no clear exposures by history L lingular bronchiectasis likely from old fungal infection mixed groundglass and semi solid infiltrate in L base an multiple small areas RLL - possible viral infection vs pneumonitis RML more solid opacity with surrounding inflammatory changes - this area needs continued followup if not found to be old finding ESR>90 These findings are all not specific could be related to atypical infectious or viral process. mycoplasma or chlamydia pneumonia could cause both pericarditis and infiltrates but would have improved with doxycycline. fungal infection is possible but not likely. could be autoimmune/inflammatory. ANKIT and ANCA pending his only respiratory symptom is cough and I would doubt bacterial pneumonia and would favor stopping antibiotics unless another extrapulmonary infection suspected He needs repeat CT in 6-12 weeks for resolution. had CT chest at [facility] from 5 years ago that may be helpful for comparison as these findings could all be old would check TSH History of Present Illness Attending Physician: Som Mancini History of Present Illness 63 y/o male with a history of AML and mastocytosis s/p bone marrow transplant >5 years ago presenting with chest pain which started a few weeks ago while he was traveling in [place]. There he was found to have pericarditis and was started on colchicine. He thinks his pain improved but he deeded to stop it because he was getting diarrhea. Over the past few days the same pain he had returned and he presented here. He denies fevers or chills. no shortness of breath +cough. no nausea/vomiting. He was found to have infiltrates on his CT scan and an elevated sed rate. recently treated with doxycycline. here was started on piperacillin-tazobactam. Allergies Allergy/AdvReac Type Severity Reaction Status Date / Time cyclobenzaprine Allergy Severe ?MUSCLE Verified 12/07/18 23:02 RELAXANT-ANAPHYLAXIS methocarbamol Allergy Severe ?MUSCLE Verified 12/07/18 23:02 RELAXANT- ANAPHYLAXIS NSAIDS (Non-Steroidal Allergy Severe ANAPHYLAXIS Verified 12/07/18 23:02 Anti-Inflamma cefepime AdvReac Intermediate Rash Unverified 12/07/18 23:02 MUSCLE RELAXANTS Allergy Severe ANAPHYLAXIS Uncoded 12/07/18 23:02 Home Medications Home Medications Medication Instructions Recorded Confirmed Type albuterol sulfate [ProAir HFA] 1 - 2 puff INHALATION DAILY PRN 12/05/18 12/07/18 History epinephrine 0.3 mg IM UD 12/05/18 12/07/18 History ofloxacin 1 drp OPR Q6H 12/05/18 12/07/18 History Patient History Medical History Chest pain (Acute) Mastocytosis AML (acute myeloblastic leukemia) A-fib Pericarditis Surgical History Bone marrow transplant status Family History Other No pertinent family history Social History Preferred Language: Belarusian Communication Ability: Effective Beliefs That Will Affect Care: Uatsdin Uatsdin Beliefs: Faith Current Living Situation: Spouse Other Information That Helps Us Care for You: No Feels Safe at Home: Yes Smoking Status: Never smoker Do You Dip or Chew Tobacco: No Hx Alcohol Use: Yes Hx Substance Use: No Review of Systems Review of Systems: Constitutional: no fevers no chills no weight loss Eyes: no blurry or double vision EENT: no sore throat, no congestion Respiratory: + cough no shortness of breath Cardiovascular: + chest pain no palpitations GI: no abdominal pain, no nausea, no vomiting, no diarrhea, no constipation Gu: no dysuria, no frequency MSK: no joint pain, + muscle aches(shoulders) Skin: no rash Neuro: no headache, no dizziness, no focal weakness Endocrine: no heat or cold intolerance heme: no easy bruising, no lymphadenopathy Psych: no depression, no anxiety Physical Exam Physical Exam: Constitutional: Comfortable NAD HEENT: normocephalic atraumatic. MMM. no cervical lymphadenopathy CV: RRR nl s1,s2 no murmurs rubs or gallops Lungs: clear to auscultation bilaterally. no accessory muscle use Abd: soft nontender nondistended. normal bowel sounds Ext: no edema. no cyanosis, no clubbing Skin: warm dry Neuro: alert and oriented. moving all extremities Psych: normal mood and affect Results & Data Vital Signs (Past 12 Hours) Vital Signs Temp Pulse Pulse Resp BP Pulse Ox 12/08/18 11:32 36.5 C 59 L 18 109/71 97 12/08/18 07:40 36.8 C 58 L 18 121/72 98 12/08/18 07:00 81 12/08/18 03:56 36.7 C 66 18 117/77 96 12/08/18 02:02 72 18 103/66 98 Laboratory Results Laboratory Results - last 24 hr 12/07/18 12/07/18 12/07/18 23:17 23:17 23:17 WBC 8.51 RBC 4.18 L Hgb 13.2 L Hct 38.6 L MCV 92.3 MCH 31.6 MCHC 34.2 RDW Std Deviation 43.1 RDW Coeff of Martin 12.7 Plt Count 363 MPV 10.4 Immature Gran % (Auto) 0.2 Neut % (Auto) 63.7 Lymph % (Auto) 23.6 [place] % (Auto) 8.7 Eos % (Auto) 3.3 Baso % (Auto) 0.5 Immature Gran # (Auto) 0.02 Neut # (Auto) 5.42 Lymph # (Auto) 2.01 [place] # (Auto) 0.74 H Eos # (Auto) 0.28 Baso # (Auto) 0.04 ESR > 90 H PT 10.6 INR 1.0 APTT 27.1 PTT Ratio 1.0 Sodium Potassium Chloride Carbon Dioxide Anion Gap BUN Creatinine Est Cr Clr Drug Dosing Est GFR ( Amer) Est GFR (Non-Af Amer) BUN/Creatinine Ratio Glucose Calcium Magnesium Total Bilirubin Direct Bilirubin AST ALT Alkaline Phosphatase CK-MB (CK-2) CK/CKMB % Calc Troponin I C-Reactive Protein Total Protein Albumin Globulin Albumin/Globulin Ratio Hepatitis C Ab Screen 12/07/18 12/08/18 12/08/18 23:17 06:51 06:51 WBC RBC Hgb Hct MCV MCH MCHC RDW Std Deviation RDW Coeff of Martin Plt Count MPV Immature Gran % (Auto) Neut % (Auto) Lymph % (Auto) [place] % (Auto) Eos % (Auto) Baso % (Auto) Immature Gran # (Auto) Neut # (Auto) Lymph # (Auto) [place] # (Auto) Eos # (Auto) Baso # (Auto) ESR PT INR APTT PTT Ratio Sodium 138 141 Potassium 4.2 4.1 Chloride 105 110 H Carbon Dioxide 28 26 Anion Gap 6.0 5.0 BUN 18 11 Creatinine 0.83 0.78 Est Cr Clr Drug Dosing 76.1 81.7 Est GFR ( Amer) 108.5 111.3 Est GFR (Non-Af Amer) 93.6 96.1 BUN/Creatinine Ratio 21.3 H 14.4 Glucose 101 H 94 Calcium 9.4 8.9 Magnesium 2.5 H Total Bilirubin 0.1 L 0.3 Direct Bilirubin < 0.1 AST 16 11 L ALT 18 16 Alkaline Phosphatase 96 88 CK-MB (CK-2) < 1.0 CK/CKMB % Calc Not Reportable Troponin I < 0.015 C-Reactive Protein 2.41 H Total Protein 7.7 6.8 Albumin 3.1 L 2.7 L Globulin 4.1 H Albumin/Globulin Ratio 0.7 L Hepatitis C Ab Screen Neg Diagnostic Findings CHEST CTA for PULMONARY ARTERIES CT DOSE: 235.54 mGy.cm HISTORY: Right-sided chest pain. PE TECHNIQUE: Multiaxial CT images of the chest were performed following the intravenous administration of contrast to evaluate the pulmonary arteries. Maximal intensity projection images were also obtained. A dose lowering technique was utilized adhering to the principles of ALARA. COMPARISON STUDY: Chest 12/05/2018. FINDINGS: Normal caliber thoracic aorta with no evidence for dissection. No pleural or pericardial effusions. Questionable linear filling defect within a left upper lobe pulmonary and image 174 favors artifact. No evidence for acute pulmonary embolus within the visualized pulmonary arteries. The visualized liver, spleen, and adrenal glands are unremarkable. No mediastinal or hilar lymphadenopathy. Normal esophagus. No suspicious lytic or blastic osseous lesions. No pneumothorax. The central airways are patent. Mild bronchiectasis within the lingula. A few linear scarlike densities within the left upper lobe. Small patchy groundglass densities within the bases of the bilateral lower lobes and focal irregular consolidation within the medial aspect of the right middle lobe. IMPRESSION: 1. No evidence for acute pulmonary embolus. 2. Small patchy groundglass densities within the bilateral lower lobes and focal consolidation within the medial aspect of right middle lobe. This favors a pneumonia. Follow-up chest CT in 3 months is recommended to ensure resolution. 3. Additional findings as described above. Electronically signed by: Jefferson Iqbal M.D. 12/08/2018 7:17 AM
[2018-12-08 14:40] LABS: Lyme Ab IgM w/WB Rflx Negative (Negative)
[2018-12-08 14:42] LABS: Lyme Ab IgG w/WB Rflx Negative (Negative)
--- NOTE | 2018-12-08 15:03 | Pharmacy Report ---
Pharmacy Abx Initial Consult - Date of Service December 08, 2018 - Pharmacy Dosing Scope Date of Consult: 12/08 Consultation requested by: Dr. Norris Pharmacy is consulted to initiate vancomycin and Zosyn IV dosing therapy, order appropriate labs and adjust drug dose/frequency. - Subjective The patient is a 63 year old M admitted on 12/08/18 03:07. - Objective Height: 5 ft 7 in Weight: 59.6 kg Vital Signs (Past 12hrs): Vital Signs Temp Pulse Pulse Resp BP Pulse Ox 12/08/18 11:32 36.5 C 59 L 18 109/71 97 12/08/18 07:40 36.8 C 58 L 18 121/72 98 12/08/18 07:00 81 12/08/18 03:56 36.7 C 66 18 117/77 96 Lab Results (24hrs): Laboratory Tests (24 Hours) 12/08/18 12/07/18 12/07/18 06:51 23:17 23:17 WBC Neut # (Auto) ESR > 90 H Creatinine 0.78 0.83 Est Cr Clr Drug Dosing 81.7 76.1 C-Reactive Protein 2.41 H 12/07/18 23:17 WBC 8.51 Neut # (Auto) 5.42 ESR Creatinine Est Cr Clr Drug Dosing C-Reactive Protein Micro Results: 12/08/18 01:16 Blood Culture - Pending Blood 12/08/18 01:16 Blood Culture - Pending Blood - Risk Factors for Resistance * Antimicrobial use within the last 90 days : doxycycline - Assessment & Plan Assessment 63 year old M admitted with pericarditis and pneumonitis, with concern for possible pneumonia. History includes fungal pneumonia and AML s/p bone marrow transplant. Plan Vancomycin IV * Estimated PK Parameters: Vd 0.7 L/kg, Jatinder 0.072 hr-1, t1/2 hr * Loading dose: 1250 mg (21.1 mg/kg) * Maintenance dose: 1000 mg IV (16.9 mg/kg) every 14 hours * Goal trough level : 15 to 20 mcg/mL * Will not order level at this point until MRSA nasal swab comes back and we can determine if necessary to continue Piperacillin/tazobactam * 4.5 g bolus administered over 30 minutes, then 3.375 g IV extended infusion every 8 hours for CrCl greater than 20 mL/min Pharmacy will continue to follow and will adjust dose/frequency as necessary. Thank you.
[2018-12-08] MEDS ORDERED: ACETAMINOPHEN 500 MG TAB PO PRN (15:07)
[2018-12-08] MEDS: VANCOMYCIN HCL 1,000 MG in SODIUM CHLORIDE 0.9% 250 ML IV SCH (15:15)
[2018-12-08] MEDS: BENZONATATE 100 MG CAPSULE PO SCH ×2 (16:12→21:09)
[2018-12-08 19:01] VITALS: TEMP 97.9
--- NOTE | 2018-12-08 21:30 | Hospitalist Progress Note ---
Date of Service December 08, 2018 Assessment & Plan (1) Opacity of lung on imaging study: question of resolving atypical pneumonia vs fungal pneumonia (unlikely) vs viral process vs inflammatory lung process vs other. appreciate pulmonary consultation. they feel we should stop abx and observe; not unreasonable. for cough - add tessalon TID scheduled. supportive care. follow cultures. Present on Admission?: Yes (2) Elevated erythrocyte sedimentation rate: in setting of recent pericarditis. appreciate cardiology consultation. hopefully sed rate is simply reflective of whatever pathogen caused the pericar ditis (best case scenario is a viral etiology). cannot rule out autoimmune disease causing elevated sed rate. (3) Pericarditis: agree w/ cardiology to retrial the colchicine albeit at lower dose. no symptoms today. echo stable and w/o effusion. ekg stable. viral etiology? appreciate ID consultation as well. 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 CBC stable. (5) A-fib: remains in NSR. low CHADS score - not on anticoagulation. PAF was in setting of pericarditis. (6) DVT prophylaxis: heparin q12h observe overnight d/c tomorrow? Subjective main complaint is dry cough. no sputum. no dyspnea. had lost 6 pounds of late due to anorexia -- but appetite improving. feels better today. can lay flat w/o chest discomforts. Review of Systems Constitutional: + fatigue and + weight loss; no fever, no chills and no anorexia Ear, Nose, Mouth, Throat: no nasal congestion Respiratory: + cough; no dyspnea, no dyspnea on exertion, no hemoptysis, no pain on inspiration and no wheezing Cardiovascular: no chest pain, no chest pain with activity, no orthopnea, no paroxysmal nocturnal dyspnea and no edema Gastrointestinal: no abdominal pain Physical Exam Constitutional: + thin; no acute distress and not ill appearing ENMT: external ear and nose normal, oropharynx normal Respiratory: normal respiratory effort, lungs clear to auscultation Cardiovascular: RRR, no murmur, no edema Heart Sounds: normal S1 and normal S2 Vessels: posterior tibial pulses present and dorsalis pedis pulses present; no JVD Gastrointestinal (Abdomen): normal bowel sounds, soft, nontender, no hepatosplenomegaly Skin: no rashes, warm and dry Psychiatric: A+Ox3, euthymic affect Results & Data Vital Signs (Past 12 Hours) Vital Signs Temp Pulse Pulse Resp BP Pulse Ox 12/08/18 19:00 36.6 C 59 L 18 95/57 L 98 12/08/18 16:00 59 L 12/08/18 15:02 36.8 C 60 16 96/62 L 96 12/08/18 11:32 36.5 C 59 L 18 109/71 97 Laboratory Results Laboratory Results - last 24 hr 12/07/18 12/07/18 12/07/18 23:17 23:17 23:17 WBC 8.51 RBC 4.18 L Hgb 13.2 L Hct 38.6 L MCV 92.3 MCH 31.6 MCHC 34.2 RDW Std Deviation 43.1 RDW Coeff of Martin 12.7 Plt Count 363 MPV 10.4 Immature Gran % (Auto) 0.2 Neut % (Auto) 63.7 Lymph % (Auto) 23.6 Meeker % (Auto) 8.7 Eos % (Auto) 3.3 Baso % (Auto) 0.5 Immature Gran # (Auto) 0.02 Neut # (Auto) 5.42 Lymph # (Auto) 2.01 Meeker # (Auto) 0.74 H Eos # (Auto) 0.28 Baso # (Auto) 0.04 ESR > 90 H PT 10.6 INR 1.0 APTT 27.1 PTT Ratio 1.0 Sodium Potassium Chloride Carbon Dioxide Anion Gap BUN Creatinine Est Cr Clr Drug Dosing Est GFR ( Amer) Est GFR (Non-Af Amer) BUN/Creatinine Ratio Glucose Calcium Magnesium Total Bilirubin Direct Bilirubin AST ALT Alkaline Phosphatase CK-MB (CK-2) CK/CKMB % Calc Troponin I C-Reactive Protein Total Protein Albumin Globulin Albumin/Globulin Ratio Nasal Screen MRSA (PCR) Lyme Disease IgG Ab Lyme Disease IgM Ab Hepatitis C Ab Screen 12/07/18 12/08/18 12/08/18 23:17 06:51 06:51 WBC RBC Hgb Hct MCV MCH MCHC RDW Std Deviation RDW Coeff of Martin Plt Count MPV Immature Gran % (Auto) Neut % (Auto) Lymph % (Auto) Meeker % (Auto) Eos % (Auto) Baso % (Auto) Immature Gran # (Auto) Neut # (Auto) Lymph # (Auto) Meeker # (Auto) Eos # (Auto) Baso # (Auto) ESR PT INR APTT PTT Ratio Sodium 138 141 Potassium 4.2 4.1 Chloride 105 110 H Carbon Dioxide 28 26 Anion Gap 6.0 5.0 BUN 18 11 Creatinine 0.83 0.78 Est Cr Clr Drug Dosing 76.1 81.7 Est GFR ( Amer) 108.5 111.3 Est GFR (Non-Af Amer) 93.6 96.1 BUN/Creatinine Ratio 21.3 H 14.4 Glucose 101 H 94 Calcium 9.4 8.9 Magnesium 2.5 H Total Bilirubin 0.1 L 0.3 Direct Bilirubin < 0.1 AST 16 11 L ALT 18 16 Alkaline Phosphatase 96 88 CK-MB (CK-2) < 1.0 CK/CKMB % Calc Not Reportable Troponin I < 0.015 C-Reactive Protein 2.41 H Total Protein 7.7 6.8 Albumin 3.1 L 2.7 L Globulin 4.1 H Albumin/Globulin Ratio 0.7 L Nasal Screen MRSA (PCR) Lyme Disease IgG Ab Lyme Disease IgM Ab Hepatitis C Ab Screen Neg 12/08/18 12/08/18 11:46 Unknown WBC RBC Hgb Hct MCV MCH MCHC RDW Std Deviation RDW Coeff of Martin Plt Count MPV Immature Gran % (Auto) Neut % (Auto) Lymph % (Auto) Meeker % (Auto) Eos % (Auto) Baso % (Auto) Immature Gran # (Auto) Neut # (Auto) Lymph # (Auto) Meeker # (Auto) Eos # (Auto) Baso # (Auto) ESR PT INR APTT PTT Ratio Sodium Potassium Chloride Carbon Dioxide Anion Gap BUN Creatinine Est Cr Clr Drug Dosing Est GFR ( Amer) Est GFR (Non-Af Amer) BUN/Creatinine Ratio Glucose Calcium Magnesium Total Bilirubin Direct Bilirubin AST ALT Alkaline Phosphatase CK-MB (CK-2) CK/CKMB % Calc Troponin I C-Reactive Protein Total Protein Albumin Globulin Albumin/Globulin Ratio Nasal Screen MRSA (PCR) Negative Lyme Disease IgG Ab Negative Lyme Disease IgM Ab Negative Hepatitis C Ab Screen (1) Pericarditis Pericarditis type: unspecified type Chronicity: acute Qualified Code(s): I30.9 - Acute pericarditis, unspecified (2) AML (acute myeloblastic leukemia) Leukemia Active/Remission status: in remission Qualified Code(s): C92.01 - Acute myeloblastic leukemia, in remission; C92.61 - Acute myeloid leukemia with [id number] in remission; 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
[2018-12-09] MEDS: VANCOMYCIN HCL 1,000 MG in SODIUM CHLORIDE 0.9% 250 ML IV SCH (04:12)
[2018-12-09] MEDS: PIPERACILLIN/TAZOBACTAM 3.375 GM in DEXTROSE 5% 100 ML IV SCH (06:08)
[2018-12-09 06:47] LABS: Basophils # (auto) 0.08 K/uL (0-0.2); Basophils % (auto) 1.6 %; Eosinophils # (auto) 0.32 K/uL (0-0.5); Eosinophils % (auto) 6.2 %; Hematocrit (blood only) 37.7 % (42-52); Immature Granulocytes # (auto) 0.01 K/uL (0.00-0.02); Immature Granulocytes % (auto) 0.2 %; Lymphocytes # (auto) 2.14 K/uL (1.2-3.4); Lymphocytes % (auto) 41.6 %; Mean Corpuscular Hgb Conc 34.5 g/dL (32-36); Mean Corpuscular Volume 92.4 fL (80-100); Mean Platelet Volume 9.8 fL (7.4-10.4); Monocytes # (auto) 0.41 K/uL (0.11-0.59); Neutrophils # (auto) 2.19 K/uL (1.4-6.5); Neutrophils % (auto) 42.4 %; Platelet Count 306 K/uL (130-400); RDW Coefficient of Variation 12.8 % (11.5-14.5); RDW Standard Deviation 43.3 fL (36.4-46.3); Red Blood Count 4.08 M/uL (4.7-6.1); White Blood Count 5.15 K/uL (4.8-10.8)
[2018-12-09 07:18] LABS: Albumin Level 2.8 gm/dl (3.4-5.0); BUN Creatinine Ratio 15.9 (10-20); Calcium 8.8 mg/dl (8.5-10.1); Creatinine Clr Calc Pharmacy 74.3 ml/min; Est GFR (African American) 109.1; Est GFR (Non-African American) 94.1; Potassium 4.1 mmol/L (3.5-5.1)
[2018-12-09 07:21] LABS: Albumin Globulin Ratio 0.7 (0.9-2); Bilirubin,Total 0.3 mg/dl (0.2-1); Total Protein 6.8 gm/dl (6.4-8.2)
[2018-12-09] MEDS: COLCHICINE 0.6 MG TAB PO SCH (08:08)
[2018-12-09] MEDS: BENZONATATE 100 MG CAPSULE PO SCH (08:08)
[2018-12-09] MEDS: HEPARIN SOD 5,000 UNIT/0.5 ML VIAL SQ SCH (08:08)
[2018-12-09 10:48] VITALS: BP 101/66; O2SAT 92
--- NOTE | 2018-12-09 12:31 | Pulmonology Progress Note ---
Date of Service December 09, 2018 Assessment & Plan (1) Opacity of lung on imaging study: bilateral infiltrates - doubt this is acute bacterial process. could be resolving pneumonia vs viral infection. no clear exposures by history L lingular bronchiectasis likely from old fungal infection mixed groundglass and semi solid infiltrate in L base an multiple small areas RLL - possible viral infection vs pneumonitis RML more solid opacity with surrounding inflammatory changes - this area needs continued followup if not found to be old finding These findings are all not specific could be related to atypical infectious or viral process. fungal infection is possible but not likely. could be autoimmune/inflammatory. ANKIT and ANCA pending his only respiratory symptom is cough and I would doubt bacterial pneumonia and would favor stopping antibiotics unless another extrapulmonary infection suspected He needs repeat CT in 6-12 weeks for resolution. had CT chest at [facility] from 5 years ago that may be helpful for comparison as these findings could all be old symptoms improving Subjective feeling better today no further pain Physical Exam Physical Exam: Constitutional: Comfortable NAD HEENT: normocephalic atraumatic. CV: RRR nl s1,s2 no murmurs rubs or gallops Lungs: clear to auscultation bilaterally. no accessory muscle use Abd: soft nontender Ext: no edema. no cyanosis, no clubbing Skin: warm dry Neuro: alert and oriented. moving all extremities Psych: normal mood and affect Results & Data Vital Signs (Past 12 Hours) Vital Signs Temp Pulse Resp BP Pulse Ox 12/09/18 10:48 36.6 C 77 16 101/66 92 12/09/18 07:19 36.6 C 56 L 16 110/70 97 12/09/18 03:32 36.6 C 54 L 16 108/68 96
--- NOTE | 2018-12-09 13:13 | Infectious Disease Progress Nt ---
Date of Service December 09, 2018 Assessment & Plan (1) Pericarditis: 63-year-old male with prior history of mastocytosis and AML status post bone marrow transplant, recently in good health, now with evidence of pericarditis and bilateral pneumonitis with symptoms persisting for more than 1 month. Long differential diagnosis including viral infections including coxsackie, echo, CMV/EBV, bacterial infections such as mycoplasma infection, Legionella, tuberculosis, Q fever. However, would have expected at least some clinical response to doxycycline if above bacterial/rickettsial infections were present. Also concerned about possibility of autoimmune/rheumatologic disease given markedly elevated sed rate. Have ordered additional serologies, antibody studies, and QuantiFERON for TB. Await the studies before making further recommendations. (2) Multifocal pneumonia: Subjective Patient seen in follow-up for pericarditis. Feeling somewhat better. No fever. Review of Systems Review of Systems: All systems reviewed & are unremarkable except as noted in HPI & below Physical Exam Constitutional: WD/WN, vitals as above comfortable; no acute distress Eyes: PERRL, conjunctivae normal, anicteric sclerae ENMT: external ear and nose normal, oropharynx normal Neck: trachea midline, no thyromegaly neck nontender Respiratory: normal respiratory effort, lungs clear to auscultation normal percussion; does not use accessory muscles Cardiovascular: Rate/Rhythm: regular rate and regular rhythm Heart Sounds: normal S1 and normal S2; no gallop, no murmur and no cardiac rub Vessels: normal peripheral pulses; no JVD Gastrointestinal (Abdomen): normal bowel sounds, soft, nontender, no hepatosplenomegaly Musculoskeletal: no cyanosis or clubbing, extremities motor strength 5/5 Spine: thoracic spine normal to inspection and lumbar spine normal to inspection; no cervical spinal tenderness Skin: no rashes, warm and dry normal turgor; no lesions Neurologic: patellar DTR's 2+ bilat, sensation intact no focal motor deficits Psychiatric: A+Ox3, euthymic affect Orientation: cooperative Lymphatic: no cervical or axillary lymphadenopathy no inguinal lymphadenopathy Results & Data Vital Signs (Past 12 Hours) Vital Signs Temp Pulse Resp BP Pulse Ox 12/09/18 10:48 36.6 C 77 16 101/66 92 12/09/18 07:19 36.6 C 56 L 16 110/70 97 12/09/18 03:32 36.6 C 54 L 16 108/68 96 Laboratory Results Short CBC 12/09/18 Range/Units 06:30 WBC 5.15 (4.8-10.8) K/uL Hgb 13.0 L (14.0-18.0) g/dL Hct 37.7 L (42-52) % Plt Count 306 (130-400) K/uL BMP 12/09/18 06:30 Sodium 139 Potassium 4.1 Chloride 108 H Carbon Dioxide 29 BUN 13 Creatinine 0.82 Glucose 92 Calcium 8.8 Liver Function 12/09/18 Range/Units 06:30 Total Bilirubin 0.3 (0.2-1) mg/dl AST 9 L (15-37) U/L ALT 15 (12-78) U/L Alkaline Phosphatase 84 (45-117) U/L Albumin 2.8 L (3.4-5.0) gm/dl Diagnostic Findings Microbiology 12/08/18 01:16 Blood Blood Culture - Preliminary No growth to date. 12/08/18 01:16 Blood Blood Culture - Preliminary No growth to date. (1) Pericarditis Chronicity: unspecified Pericarditis type: unspecified type Qualified Code(s): I31.9 - Disease of pericardium, unspecified
[2018-12-09 14:01] VITALS: PULSE 53
--- NOTE | 2018-12-14 09:01 | Discharge Summary ---
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 Patient recently traveled to [facility] and returned home 11/23/18 . While in [place] he developed chest pain and went to the local hospital on 11/10, 11/11, and finally was admitted on 11/13/18. He was subsequently diagnosed with atrial fibrillation during one encounter and pericarditis on another encounter. He was placed on Beta-ileana (Metoprolol) for 10-14 days and Colchicine that he took for 14 days but then stopped it himself due to diarrhea. He was also given doxycycline for well over a week for probable pneumonia. Patient was seen in [facility] emergency dept 2 days ago with chest pain radiating to the right shoulder and sent home. He saw his pcp Dr. Aguilar with [facility] yesterday who told him that his ESR was elevated at 75. PCP had recommended admission for Echo and chest CT. He continues to report some chest pain with inspiration. He denies palpitations, presyncope, syncope. He reports nausea, but denies ongoing diarrhea. His largest complaint is that of a dry cou gh. In the ED, he was found to be afebrile, 98-100% saturation in room air with stable VSS otherwise. ESR >90, CRP 2.41, no leukocytosis. CTA chest showed bilateral lung opacities, chronic scarring , bronchiectasis, but no PEs. Principal Diagnosis pericarditis probable resolving pneumonia Discharge Exam Constitutional + thin; no acute distress and not ill appearing ENMT external ear and nose normal, oropharynx normal Respiratory normal respiratory effort, lungs clear to auscultation Cardiovascular RRR, no murmur, no edema Heart Sounds: normal S1 and normal S2 Vessels: posterior tibial pulses present and dorsalis pedis pulses present; no JVD Gastrointestinal (Abdomen) normal bowel sounds, soft, nontender, no hepatosplenomegaly Skin no rashes, warm and dry Psychiatric A+Ox3, euthymic affect Discharge Data Allergies Allergy/AdvReac Type Severity Reaction Status Date / Time cyclobenzaprine Allergy Severe ?MUSCLE Verified 12/07/18 23:02 RELAXANT-ANAPHYLAXIS methocarbamol Allergy Severe ?MUSCLE Verified 12/07/18 23:02 RELAXANT- ANAPHYLAXIS NSAIDS (Non-Steroidal Allergy Severe ANAPHYLAXIS Verified 12/07/18 23:02 Anti-Inflamma cefepime AdvReac Intermediate Rash Unverified 12/07/18 23:02 MUSCLE RELAXANTS Allergy Severe ANAPHYLAXIS Uncoded 12/07/18 23:[address] [facility] Infectious Diseases 2. Cardiology - Bill Munoz DO 3. Pulmonary - Simon Naidu MD Ordered Studies 1. CTA chest: FINDINGS: Normal caliber thoracic aorta with no evidence for dissection. No pleural or pericardial effusions. Questionable linear filling defect within a left upper lobe pulmonary and image 174 favors artifact. No evidence for acute pulmonary embolus within the visualized pulmonary arteries. The visualized liver, spleen, and adrenal glands are unremarkable. No mediastinal or hilar lymphadenopathy. Normal esophagus. No suspicious lytic or blastic osseous lesions. No pneumothorax. The central airways are patent. Mild bronchiectasis within the lingula. A few linear scarlike densities within the left upper lobe. Small patchy groundglass densities within the bases of the bilateral lower lobes and focal irregular consolidation within the medial aspect of the right middle lobe. IMPRESSION: 1. No evidence for acute pulmonary embolus. 2. Small patchy groundglass densities within the bilateral lower lobes and focal consolidation within the medial aspect of right middle lobe. This favors a pneumonia. Follow-up chest CT in 3 months is recommended to ensure resolution. 3. Additional findings as described above. 2. echocardiogram: * EF 55-60% * normal diastolic function * no pericardial effusion Hospital Course (1) Pericarditis: The patient was seen by [facility] Cardiology Dr Bill Munoz who recommended a retrial of colchicine albeit at a lower dose. He was resumed on the colchicine and tolerated such. He had no further pleuritic chest pain symptoms. Echo was stable and w/o pericardial effusion. Ekgs were stable. He was seen by infectious disease for his lung imaging findings and the pericarditis. Viral etiology vs atypical process (mycoplasma, etc) vs autoimmune process were all possible etiologies for his constellation of clinical findings. Titers for mycoplasma, Q fever, typhus, etc were all sent and were pending at discharge. ANCA, quantiferon gold testing, etc were also pending at discharge. He will need follow-up with his PCP, cardiology, and possibly infectious disease shortly after discharge. (2) Opacity of lung on imaging study: The findings on CT of the chest may have been due to a resolving atypical pneumonia vs fungal pneumonia (unlikely) vs viral process vs inflammatory lung process vs other. He was seen by pulmonary who recommended observation off of antibiotics. Cough symptoms were treated symptomatically. He had no fever or leukocytosis while hospitalized. Blood cultures drawn through the [facility] system as well as at [facility] were all negative. Repeat chest CT in 6 weeks was advised to ensure radiographic resolution of all infiltrates. (3) Elevated erythrocyte sedimentation rate: In the setting of recent pericarditis and lung findings. Hopefully the sed rate is simply reflective of whatever pathogen caused the pericarditis and lung issues (best case scenario is a viral etiology). Cannot rule out autoimmune disease causing elevated sed rate. See above regarding pending labs. (4) AML (acute myeloblastic leukemia): History of such. s/p BMT in the past with cure. CBC was stable while hospitalized. (5) A-fib: remains in NSR. low CHADS score - not on anticoagulation. PAF was in setting of pericarditis. Total Time Total Time Spent Total Time Spent (In Minutes): 40 Total Time Includes: Examination of the Patient, Discharge Planning, Medication Reconciliation and Communication With Other Providers Discharge Plan Discharge Items Patient Disposition: Home - Self-Care Reason For Visit: COUGH, HISTORY CHEST DISCOMFORT H/O PERICARDITIS Discharge Diagnosis: pericarditis, abnormal CAT scan of the chest, resolving cough Discharge Goals: Diagnostic testing and Therapeutic intervention Activity: As commented below Activity Comment: gradual increase your activities over the next 1-2 weeks Lifting: Gradually increase as tolerated Sexual Activity: Wait until after follow-up appointment Exercise/Sports: Wait until after follow-up appointment Driving/Machine Use: No limitations Non-emergency contact: Primary Care Provider and Disability Examiner Call non-emergency contact if: you have any medication questions, your symptoms worsen, your pain is not controlled, your pain is worsening, your pain is unusual for you, your pain is concerning for you and your temperature is above 100.5 Follow-up/Referrals: Bill Munoz DO [Physician] - (Please, follow up with Dr. Munoz. *The nurse from his office is to call you to coordinate this appointment. If you have any questions, call the office at [phone].) Jame Aguilar [Primary Care Provider] - 12/14/18 1:50 pm (Please, follow up with Dr. Aguilar on ThursdayDecember 14 at 1:50 pm. *If you need to change this appointment, call the office at [phone].) Diet: Heart Healthy Addtl Provider Instructions: From Som Mancini - Hospitalist - You were admitted for recent fevers, cough, and chest / shoulder discomforts. Your recent blood cultures from [facility] and [facility] are all negative (no evidence of blood infection). Your echocardiogram was normal. Your CAT scan of the lungs showed scar tissue and some small nodules probably due to recent infection. Dr. Munoz saw you from cardiology and recommended a retrial of low-dose colchicine and so far you are doing well on this. Your chest and shoulder pains have improved while hospitalized. At this time we recommend - 1. colchicine 0.3mg once daily. 2. ranitidine 150mg twice a day. 3. tessalon perles 100mg every 8 hours as needed for cough. Follow-up -- see separate section. Return to [facility] if -- * you have recurrent fevers over 100.5 degrees * you have recurrent chest discomforts despite taking your colchicine * you develop shortness of breath * any other concerns Prescriptions: New benzonatate [Tessalon Perles] 100 mg Capsule 100 mg PO TID PRN (Reason: Cough) Qty: 30 RF: 0 ranitidine HCl 150 mg Tablet 150 mg PO BID Qty: 60 RF: 1 colchicine [Colcrys] 0.6 mg Tablet 0.3 mg PO QAM Qty: 30 RF: 2 Continued ofloxacin 0.3 % drops 1 drp OPR Q6H RF: 0 epinephrine 0.3 mg/0.3 mL auto-injector 0.3 mg IM UD RF: 0 albuterol sulfate [ProAir HFA] 90 mcg/actuation HFA aerosol inhaler 1 - 2 puff inhalation DAILY PRN (Reason: Shortness Of Breath Or Wheezing) RF: 0 Stand-Alone Forms: [facility] Discharge Orders: Discharge Order (Routine); Ordered 12/09/18 Ordered By: Som Mancini Admission Data Admit Date/Time: 12/08/18 03:07 Attending Provider: Som Mancini Admit Provider: Anthony Trinidad Primary Care Provider: Jame Aguilar Other Providers: Anthony Trinidad ; Tiffany Oconnor ; Demarcus Castro ; Simon Naidu Service: Telemetry Other Interventions: Discharge Summary Assessment (RN) Last Done: 12/09/18 13:08 Pending Studies at Discharge: Yes Studies:: labs to rule out certain viral infections, inflammatory conditions that can cause lung and heart disease, etc DC Date/Time DO NOT enter until pt leaves facility: 12/09/18 14:00
[2018-12-15 13:34] LABS: Anti Nuclear Antibody Screen NEGATIVE (NEGATIVE); Legionella pneumoph IgM, IFA <1:256 TITER; Mycoplasma pneumoniae Ab, IgG <=0.90 (<=0.90); Mycoplasma pneumoniae Ab, IgM 663 U/mL (<770); Myeloperoxidase Ab <1.0 AI (<1.0); Q Fever IgG, Phase I NEGATIVE; Q Fever Phase I IgM Antibody NEGATIVE; Q Fever Phase II IgG Antibody NEGATIVE; Q Fever Phase II IgM Antibody NEGATIVE; Quantiferon Mitogen-NIL >10.00 IU/ML; Quantiferon NIL 0.04 IU/ML; Quantiferon TB Gold Plus NEGATIVE (NEGATIVE); Quantiferon TB1-NIL <0.00 IU/ML; Quantiferon TB2-NIL <0.00 IU/ML; R. typhi IgG Ab Not Detected (Not Detected); R. typhi IgM Ab Not Detected (Not Detected); RMSF IgG Ab Not Detected (Not Detected); RMSF IgM Ab Not Detected (Not Detected)
== END 2018-12-09 14:00 | disposition home or self-care (01) | DRG 314 ==
LOC: ED 22:25 → 2S 12-08 03:07 → SUATTDRO 12-08 03:07 → 2S 12-08 03:34